=== PATIENT | male | born 1990 | race Caucasian/White ===

== ENCOUNTER 2022-11-17 15:48 | Emergency (ER) | payer OTHER, SELFPAY ==
--- NOTE | ~2022-11-17 | XR_ITS ---
XR chest 2V 11/17/2022 16:05 Indication: Chest pain. Procedure: 2 view chest Comparison: No prior studies for comparison. Findings: Heart size normal. There is a large right pneumothorax with mediastinal shift to the left. No significant effusion. No acute osseous abnormality. Impression: 1: Large right pneumothorax with mediastinal shift to the left. Reviewed, dictated and finalized at location B. Impression: 1: Large right pneumothorax with mediastinal shift to the left.
[2022-11-17 15:48] VITALS: BP 138/77; PULSE 106; RESP 28; TEMP 36.5; O2SAT 97
[2022-11-17 16:11] VITALS: PULSE 102; RESP 22; O2SAT 94
--- NOTE | 2022-11-17 16:14 | ED.CHESTPAIN ---
HPI - Chest Pain General Chief Complaint: Chest Pain Stated Complaint: Shortness of Breath/Chest Pain Time Seen by Provider: 11/17/22 16:01 Source: patient, RN notes reviewed and old records reviewed Mode of arrival: ambulatory Limitations: no limitations History of Present Illness HPI narrative: 32 [facility] complaints of shortness of breath and upper chest pain. He reports that this morning around 1000 he was bending over bath tub washing his hair leaning on his chest and he felt sudden deep pain in his upper chest.Patient reports that he took Tylenol and Ibuprofen without anypain decrease. Since about 1430 he has been experiencing shortness of breath especially if he tries to take deep breath and then he tried taking shallow breaths and he became more short of breath. Patient reports that he also tried using his inhaler with no relief. MD complaint: chest pain and other (dyspnea) Onset (ago): hour(s) (6) Pain location: other (upper chest) Pain scale (0-10): 8 Associated symptoms: dyspnea Treatment prior to arrival: other (Tylenol Ibuprofen and used inhaler) Related Data Home Medications Medication Instructions Recorded Confirmed albuterol sulfate 90 mcg/actuation 90 mcg inhalation DIRECTED 11/17/22 11/17/22 aerosol inhaler budesonide-formoterol HFA 160 160 inh inhalation DIRECTED 11/17/22 11/17/22 mcg-4.5 mcg/actuation aerosol inhaler (Symbicort) dextroamphetamine-amphetamine ER 30 mg PO DIRECTED 11/17/22 11/17/22 30 mg 24hr capsule,extend release Allergies Allergy/AdvReac Type Severity Reaction Status Date / Time No Known Allergies Allergy Verified 11/17/22 15:58 Review of Systems Review of Systems: CONSTITUTIONAL: Denies fever, chills, or sweats. EYES: Denies visual changes, redness, or discharge. ENT: Denies rhinorrhea, congestion, sore throat, or otalgia. CARDIOVASCULAR:Reports chest pain, no palpitations, or edema. RESPIRATORY: Reports dyspnea. GASTROINTESTINAL: Denies abdominal pain, nausea, vomiting, or diarrhea. GENITOURINARY: Denies dysuria or hematuria. SKIN: Denies rash or itching. MUSCULOSKELETAL: Denies back pain, joint pain, or myalgia. NEUROLOGIC: Denies headache, numbness, or weakness. PSYCHIATRIC:Reports history of anxiety or depression. All systems reviewed & are unremarkable except as noted in HPI and below PMFSH Past Medical History Medical History (Updated 11/18/22 @ 12:14 by Anastasia Pascal NP) ADHD (attention deficit hyperactivity disorder) Anxiety Asthma Social History Social History (Updated 11/18/22 @ 12:14 by Anastasia Pascal NP) Smoking status: Never smoker Alcohol intake: unknown Substance use type: does not use Living arrangements: with family Gender identity (if verbalized by the patient): Male Comments At time of signature, agree with nursing past medical, surgical, social and family history. There is no relevant family history pertinent to the presenting complaint Exam Narrative: GENERAL: Well-appearing, well-nourished, and in acute distress.restless with dyspnea HEAD: Normocephalic, atraumatic. EYES: PERRLA and EOMI. ENT: Nares clear, no rhinorrhea or epistaxis. Mucous membranes moist.TM's normal throat pink with no swelling NECK: Supple.no lymphadenopathy CHEST: Diminished breath sound right on auscultation. some respiratory distress.positive for tachypnea and chest pain HEART: Regular rate and rhythm. No murmur heard. Normal peripheral pulses. ABDOMEN: Soft, nontender, nondistended, normal active bowel sounds. EXTREMITIES: Normal range of motion. No edema. SKIN: Warm, dry, no rash. NEURO: No focal deficits. Alert and oriented x3 Course Course Emergency Course: Patient is aware of diagnosis, understands and agrees to treatment plan.? Anticipatory guidance given.? Patient agrees to and is aware of reason for transfer of care to the emergency department. Portions of this record may ralph
[2022-11-17 16:37] VITALS: PULSE 100; RESP 22; O2SAT 94
== END 2022-11-17 16:37 | disposition short-term general hospital (02) ==
PROVIDERS: Emergency Provider Registered Nurse
DX: J93.9 Pneumothorax, unspecified (principal); F90.9 Attention-deficit hyperactivity disorder, unspecified type; J45.909 Unspecified asthma, uncomplicated
CPT/HCPCS: 71046; 99215; G0463

== ENCOUNTER 2024-10-05 11:54 | Emergency (ER) | payer OTHER, BC, SELFPAY ==
--- NOTE | ~2024-10-05 | XR_ITS ---
3 VIEWS THORACIC SPINE Ordering provider: Anastasia Pascal NP History: . pain to thoracic spine . Comparison: None. FINDINGS: VERTEBRAL BODIES: Normal height and alignment. No visible fracture or subluxation. DISK SPACES: Normal. SOFT TISSUES: Normal. IMPRESSION: No acute osseous abnormality of the thoracic spine. Reviewed, dictated and finalized at location A.
--- OUTSIDE RECORDS SUMMARY | 2024-10-05 11:56 | XMS_ITS | Clinical Summary ---
Author Organization [facility] Address [address] [place] [address] Phone Care Team Providers Care Corporate Event Planner Name Role Phone Michel James [facility] Primary Care Provider Allergies No known active allergies Medications valACYclovir (VALTREX) 500 MG Tablet Take 1 Tab by mouth daily. 30 Tab 5 01/07/20 20 Active albuterol 108 (90 Base) MCG/ACT Aerosol SolutionIndicatio ns:Mild intermittent asthma without complication take 2 Puffs by inhalation every 4 hours as needed for Wheezing or Cough. 18 g 2 08/04/19 25 Active budesonide-formot leesa fumarate (Symbicort) 160-4.5 MCG/ACT AerosolIndication s:Mild intermittent asthma without complication take 2 Puffs by inhalation 2 times daily. 30.6 g 08/04/19 25 Active amphetamine-dextr oamphetamine (Adderall XR) 30 MG CAPSULE SR 24 HRIndications:Att ention deficit hyperactivity disorder (ADHD), combined type Take one tablet daily in AM. Take with 20mg dose to make 50mg daily. 30 Capsule 09/04/19 25 Active amphetamine-dextr oamphetamine (Adderall XR) 20 MG CAPSULE SR 24 HRIndications:Att ention deficit hyperactivity disorder (ADHD), combined type Take 1 Capsule by mouth every morning. Take with 30mg dose to get 50mg daily. 30 Capsule 09/19/19 25 Active amphetamine-dextr oamphetamine (Adderall XR) 20 MG CAPSULE SR 24 HRIndications:Att ention deficit hyperactivity disorder (ADHD), combined type Take 1 Capsule by mouth every morning. Take with 30mg dose to get 50mg daily. 30 Capsule 08/19/19 25 025 Discontin ued(Reord er) Active Problems Problem Noted Date Diagnosed Date Seasonal allergic rhinitis 12/31/2018 Eczema 12/31/2018 Major depressive disorder, r ecurrent episode, moderate with anxious distress 01/03/2018 ADHD (attention deficit hyperactivity disorder) 01/01/2018 Moderate persistent asthma without complication 08/15/2017 Encounters Date Type Department Care Team Description 09/17/2024 MyChart RX Renewal [facility] [place] [phone] Michel James PAC Medication Renewal Reviewed 09/03/2024 Refill [facility] [place] [address] Michel James PAC Medication Refill 08/29/2024 3:00 PM TRAIN STARTER Outpatient Clinic Visit [facility] [address] [place] [phone] Michel James, Ana M Woodard, [facility] ADHD (attention deficit hyperactivity disorder) (Primary Dx); Major depressive disorder, recurrent episode, moderate with anxious distress (HCC); Anxiety Discharge Disposition: Discharged to home or Selfcare 08/29/2024 Travel 08/21/2024 Refill [facility] [place] [address] Michel James PAC Medication Refill 08/18/2024 MyChart RX Renewal [facility] [address] [place] [phone] Michel James PAC Medication Renewal Declined 08/07/2024 Results Follow-Up [facility] [place] [address] Michel James PAC 08/04/2024 9:40 AM TRAIN STARTER [facility] [address] [place] [address] [place] [facility] Mild intermittent asthma without complication; Preventative health care (Adult); Anxiety Discharge Disposition: Discharged to home or Selfcare 08/04/2024 7:45 AM TRAIN STARTER [facility] [address] [place] [address] Michel James PAC Preventative health care (Adult) (Primary Dx); Attention deficit hyperactivity disorder (ADHD), combined type; Mild intermittent asthma without complication; Major depressive disorder, recurrent episode, moderate with anxious distress (HCC); Anxiety Discharge Disposition: Discharged to home or Selfcare 08/04/2024 Travel 08/01/2024 [facility] [address] [place] [address] Michel James PAC Medication Refill 08/01/2024 Telephone [facility] [address] [place] [phone] Michel James PAC Medication Management 07/12/2024 Refill [facility] [address] [place] [phone] Michel James PAC Medication Refill from Last 3 Months Immunizations Immunization Administration Dates Next Due DTAP VACCINE 10/22/1996 DTP Vaccine 02/28/1993, 2,01/21/1992,1991 Hepatitis B Vaccine,unspecif ied Formulation 10/22/1996,09/03/1996 Hib (HbOC) 02/28/1993, 2,01/21/1992,1991 MMR Vaccine 09/03/1996,02/28/1993 OPV 09/03/1996, 3,05/26/1992,1991,1991 Family History Relation Name Status Comments Father Alive Mother Alive Social History Tobacco Use Types Packs/Day Years Used Date Smoking Tobacco: Former Smokeless Tobacco: Never Tobacco Cessation:Counseling Given: Not Answered Alcohol Use Standard Drinks/Week Comments Yes 0 (1 standard drink = 0.6 oz pur e alcohol) rare [facility] Utilities Answer Date Recorded In the past 12 months has th e electric, gas, oil, or water company threatened to shut off services in your home? Yes 08/04/2024 Social Connection and Isolat ion Panel [NHANES] Answer Date Recorded In a typical week, how many times do you talk on the phone with family, friends, or neighbors? Once a week 08/04/2024 How often do you get togethe r with friends or relatives? Once a week 08/04/2024 How often do you attend chur ch or mandaen services? More than 4 times per year 08/04/2024 Do you belong to any clubs o r organizations such as quaker groups, unions, fraternal or athletic groups, or school groups? Yes 08/04/2024 How often do you attend meet ings of the clubs or organizations you belong to? More than 4 times per year 08/04/2024 Are you , , di vorced, , never , or living with a partner? Patient declined 08/04/2024 AUDIT-C Answer Date Recorded Q1: How often do you have a drink containing alc ohol? Monthly or less 08/04/2024 Q2: How many drinks containi ng alcohol do you have on a typical day when you are drinking? 3 or 4 08/04/2024 Q3: How often do you have si x or more drinks on one occasion? Never 08/04/2024 Overall Financial Resource Strain (CARDIA) Answe r Date Recorded How hard is it for you to pa y for the very basics like food, housing, medical care, and heating? Somewhat hard 08/04/2024 PHQ-2 Answer Date Recorded Total Score - Questions 1-9 0 08/2024 [facility] Occupat ional Health - Occupational Stress Questionnaire Answer Date Recorded Do you feel stress - tense, restless, nervous, or anxious, or unable to sleep at night because your mind is troubled all the time - these days? Very much 08/04/2024 Exercise Vital Sign Answer Date Recorde d On average, how many days pe r week do you engage in moderate to strenuous exercise (like a brisk walk)? 3 days 08/04/2024 On average, how many minutes do you engage in exercise at this level? 50 min 08/04/2024 Hunger Vital Sign Answer Date Recorded Within the past 12 months, y ou worried that your food would run out before you got the money to buy more. Sometimes true Within the past 12 months, t he food you bought just didn't last and you didn't have money to get more. Sometimes true 08/2024 PRAPARE - Transportation Answer Date Re corded In the past 12 months, has l ack of transportation kept you from medical appointments or from getting medications? No 08/2024 In the past 12 months, has l ack of transportation kept you from meetings, work, or from getting things needed for daily living? No 08/04/2024 Housing Stability Vital Sign Answer Stephen e Recorded In the last 12 months, was t here a time when you were not able to pay the mortgage or rent on time? No 08/04/2024 In the past 12 months, how m any times have you moved where you were living? 1 08/04/2024 At any time in the past 12 m [facility], were you homeless or living in a residential (including now)? No 08/04/2024 Sexually Active Control Partners Comments Yes None Female Sex and Gender Information Value Date Recorded Sex Assigned at Not on file Legal Sex Male 10:51 AM TRAIN STARTER Gender Identity Not on file Sexual Orientation Not on file Last Filed Vital Signs Vital Sign Reading Time Taken Comments Blood Pressure 102/70 08/04/2024 7:52 AM TRAIN STARTER Pulse 66 08/04/2024 7:52 AM TRAIN STARTER Temperature 37.7 C (99.8 F) 08/04/2024 7:52 AM TRAIN STARTER Respiratory Rate 20 08/04/2024 7:52 AM TRAIN STARTER Oxygen Saturation 99% 08/04/2024 7:52 AM TRAIN STARTER Inhaled Oxygen Concentration - - Weight 85.7 kg (189 lb) 08/04/2024 7:52 AM TRAIN STARTER Height 182.9 cm (6') 07/13/2023 3:46 PM TRAIN STARTER Body Mass Index 25.63 07/13/2023 3:46 PM TRAIN STARTER Plan of Treatment Upcoming Encounters Date Type Department Care Team (Late st Contact Info) Description 02/02/2025 9:00 AM CDT Lab [facility] [address] [place] [phone] [facility] 02/09/2025 9:00 AM CDT Office Visit [facility] [address] [place] [address] Michel James, PAC [address] [place] [phone] Health Maintenance Due Date Last Done Comments Hepatitis C Virus (HCV) Screening 1991 Hepatitis B Immunization (3 of 3 - 3-dose series) 12/24/1996 10/22/1996, 09/03/1996 DTaP/Tdap/Td Immunization (6 - Tdap) 09/01/2002 10/22/1996, 02/28/1993, 05/26/1992, Additional history exists Pneumococcal Immunization Combined (1 of 2 - PCV) 09/01/2010 Influenza Immunization (#1) 2024 SARS-COV-2 Immunization ( - 2023- season) 2024 Respiratory Syncytial Virus (RSV) Immunization (Adult) (1 - 1-dose 75+ series) 09/01/2066 Meningococcal Immunization (ACWY) Aged Out No longer eligible based on patient's age to complete this topic Rotavirus Immunization Aged Out No lo nger eligible based on patient's age to complete this topic Goals Goal Patient Goal Type Associated Problems Recent Progress Patient-Stated? Author figure out where I am going and how to do it Behavioral Health Improving( 11:35 AM CDT) Lianne Buckner, EXHIBITION ORGANISER Note: Learn about the things are keeping from my achieving my potential and eliminate them so I can move forward. Address ADHD symptoms, and depression symptoms through monthly counseling. 45 minute sessions for 6 months. Learn 5 healthy coping skills to manage moods and stress Learn 3 strategies to ease ADHD and be able to apply them to my future. Take any medication as directed to reduce symptoms. ADHD coping skills. Behavioral Health On track(2020 11:35 AM CDT) No Lianne Henderson LCSW Note: Goal Reviewed with: patient Readiness to change: Ready to change Department associated with goal: [facility] Steps to achieve goal: will identify at least two coping skills/activities/habits that have helped to manage anxiety in the past. will identify at least three new coping skills/activities/habits that may help to prevent and/or cope with anxiety. 3. will identify a plan to implement coping skills and follow this plan for two weeks and evaluate the impact on anxiety. 4. Attend counseling twice per month for 6 months. 30-45 minute sessions. Depression Depression Improving( 11:35 AM CDT) No Lianne Henderson LCSW Note: to have reduction of anxiety and depression symptoms. Goal Reviewed with: patient today Readiness to change: Ready to change Department associated with goal: [facility] Steps to achieve goal: to attend, at least twice monthly, counseling sessions for 6 month. Sessions will be 45 minutes long. to identify, verbalize and process at least three contributing factors/triggers to anxiety and depression. to identify and verbalize at least three actions/skills to prevent and/or cope with anxiety and depression. to put into action, at least one time weekly, for one month, an action/skill to prevent and or cope with anxiety and depression. Procedures Procedure Name Priority Date/Time Associated Diagnosis Comments THYROID SCREEN WITH REFLEX Routine 08/04/2024 8:27 AM TRAIN STARTER Anxiety Preventative health care (Adult) CBC WITH AUTO DIFFERENTIAL Today 08/04/2024 8:27 AM TRAIN STARTER Mild intermittent asthma without complication Preventative health care (Adult) THYROID SCREEN WITH REFLEX Routine 08/04/2024 8:27 AM TRAIN STARTER Anxiety Preventative health care (Adult) LIPID PANEL Today 08/04/2024 8:27 AM TRAIN STARTER Preventative health care (Adult) CMP (COMPREHENSIVE METABOLIC PANEL) Routine 08/04/2024 8:27 AM TRAIN STARTER Preventative health care (Adult) COMPLETE BLOOD COUNT (CBC) WITH DIFF Today 08/04/2024 8:27 AM TRAIN STARTER Mild intermittent asthma without complication Preventative health care (Adult) from Last 3 Months Results * THYROID SCREEN WITH REFLEX (08/04/2024 8:27 AM TRAIN STARTER) Pathologist [facility] [place] TSH 1.489 0.300 - 5.000 mIU/L 08/04/2024 1:06 PM TRAIN STARTER [facility] Blood Venipuncture / Unknown 08/04/2024 8:27 AM TRAIN STARTER 08/04/2024 8:27 AM TRAIN STARTER us Michel James PAC CHEMISTRY ORDERABLES Final R esult [facility] [place] [address] * (ABNORMAL) CBC WITH AUTO DIFFERENTIAL (08/04/2024 8:27 AM TRAIN STARTER) Pathologist [facility] [place] WBC 6.81 4.00 - 12.00 10(3)/mcL 08/04/2024 12:39 PM TRAIN STARTER [facility] RBC 4.20(L) 4.40 - 5.80 10(6)/mcL 08/04/2024 12:39 PM TRAIN STARTER [facility] HEMOGLOBIN (HGB) 13.5 13.0 - 16.5 g/dL 08/04/2024 12:39 PM TRAIN STARTER [facility] HEMATOCRIT (HCT) 39.9 38.0 - 50.0 % 08/04/2024 12:39 PM TRAIN STARTER [facility] MCV 95.0 82.0 - 96.0 fL 08/04/2024 12:39 PM TRAIN STARTER [facility] MCH 32.1(H) 26.0 - 32.0 pg 08/04/2024 12:39 PM [facility] MCHC 33.8 31.0 - 36.0 g/dL 08/04/2024 12:39 PM [facility] PLATELET COUNT 389 140 - 440 10(3)/[facility] 08/04/2024 12:39 PM [facility] RDW 12.4 11.8 - 15.5 % 08/04/2024 12:39 PM [facility] MPV 10.0 8.0 - 12.6 fL 08/04/2024 12:39 PM [facility] NEUTROPHILS 43.2 40.0 - 68.0 % 08/04/2024 12:39 PM [facility] LYMPHOCYTES 43.9 19.0 - 49.0 % 08/04/2024 12:39 PM [facility] MONOCYTES 7.6 3.0 - 13.0 % 08/04/2024 12:39 PM [facility] EOSINOPHILS 3.5 0.0 - 8.0 % 08/04/2024 12:39 PM [facility] BASOPHILS 1.8(H) 0.0 - 1.0 % 08/04/2024 12:39 PM [facility] ABSOLUTE NEUTROPHILS 2.94 1.40 - 5.30 10(3)/[facility] 08/04/2024 12:39 PM [facility] ABSOLUTE LYMPHOCYTES 2.99 0.90 - 3.30 10(3)/[facility] 08/04/2024 12:39 PM [facility] ABSOLUTE MONOCYTES 0.52 0.10 - 0.90 10(3)/[facility] 08/04/2024 12:39 PM [facility] ABSOLUTE EOSINOPHIL 0.24 0.00 - 0.50 10(3)/[facility] 08/04/2024 12:39 PM [facility] ABSOLUTE BASOPHILS 0.12(H) 0.00 - 0.10 10(3)/[facility] 08/04/2024 12:39 PM [facility] NRBC PER 100 WBC 0 08/04/19 12:39 PM TRAIN STARTER [facility] Blood Venipuncture / Unknown 08/04/2024 8:27 AM TRAIN STARTER 08/04/2024 8:27 AM TRAIN STARTER us Michel James PAC HEMATOLOGY ORDERABLES Final Result [facility] [address] [place] [address] * LIPID PANEL (08/04/2024 8:27 AM TRAIN STARTER) CHOLESTEROL 145 <200 mg/dL 08/04/2024 1:01 PM TRAIN STARTER [facility] TRIGLYCERIDES 64 <150 mg/dL 08/04/2024 1:01 PM TRAIN STARTER [facility] HDL CHOLESTEROL 44 >40 mg/dL 1:01 PM TRAIN STARTER [facility] LDL 88 <130 mg/dL 08/04/2024 1:01 PM TRAIN STARTER [facility] VLDL 13 10 - 50 mg/dL 08/04/2024 1:01 PM [facility] CHOL/HDL RATIO 3.3 0.0 - 4.4 08/04/2024 1:01 PM TRAIN STARTER [facility] NON-HDL CHOLESTEROL 101 <130 mg/dL 08/04/2024 1:01 PM TRAIN STARTER [facility] IS THE PATIENT REQUIRED TO BE FASTING? Yes 08/04/2024 1:01 PM [facility] HAS THE PATIENT BEEN FASTING? Yes 08/04/2024 1:01 PM TRAIN STARTER [facility] Blood Venipuncture / Unknown 08/04/2024 8:27 AM TRAIN STARTER 08/04/2024 8:27 AM TRAIN STARTER us Michel James PAC CHEMISTRY ORDERABLES Final R esult [facility] [address] [place] [address] * (ABNORMAL) CMP (COMPREHENSIVE METABOLIC PANEL) (08/04/2024 8:27 AM TRAIN STARTER) SODIUM 140 136 - 145 mmol/L 08/04/2024 1:01 PM [facility] POTASSIUM 4.6 3.5 - 5.1 mmol/L 08/04/2024 1:01 PM [facility] CHLORIDE 110(H) 98 - 107 mmol/L 08/04/2024 1:01 PM [facility] CO2, VENOUS 25 22 - 30 mmol/L 08/04/2024 1:01 PM [facility] ANION GAP 9.6 <18.0 mmol/L 08/04/2024 1:01 PM [facility] GLUCOSE 100(H) 70 - 99 mg/dL 08/04/2024 1:01 PM [facility] BUN 11 9 - 21 mg/dL 08/04/2024 1:01 PM [facility] CREATININE, BLOOD 0.87 0.70 - 1.30 mg/dL 08/04/2024 1:01 PM [facility] BUN/CREATININE RATIO 13 12 - 20 ratio 08/04/2024 1:01 PM [facility] TOTAL PROTEIN 8.1(H) 6.0 - 8.0 g/dL 08/04/2024 1:01 PM [facility] ALBUMIN 4.3 3.5 - 5.0 g/dL 08/04/2024 1:01 PM [facility] A/G RATIO 1.1 1.0 - 2.2 08/04/2024 1:01 PM [facility] CALCIUM 9.3 8.7 - 10.5 mg/dL 08/04/2024 1:01 PM [facility] T BILI 0.2 0.2 - 1.2 mg/dL 08/04/2024 1:01 PM [facility] SGOT (AST) 29 6 - 42 U/L 08/04/2024 1:01 PM TRAIN STARTER [facility] SGPT (ALT) 28 6 - 55 U/L 08/04/2024 1:01 PM [facility] ALKALINE PHOSPHATASE 69 40 - 150 U/L 08/04/2024 1:01 PM [facility] IS THE PATIENT REQUIRED TO BE FASTING? Yes 08/04/2024 1:01 PM [facility] HAS THE PATIENT BEEN FASTING? Yes 08/04/2024 1:01 PM TRAIN STARTER [facility] GFR, ESTIMATED >60 >=60 08/04/2024 1:01 PM [facility] Comment: Creatinine Clearance is the preferred criteria for selecting drug dose adjustments in renally impaired patients. The GFR is provided as additional pertinent clinical information. GFR is reported in mL/min/1.73 sq m. Calculation based on the Chronic Kidney Disease Epidemiology Collaboration (CKD- EPI) equation refit without adjustment for race. GFR, EST. >60 >=60 025 1:01 PM TRAIN STARTER [facility] GFR, EST. NONAFRICAN >60 >=60 08/04/2024 1:01 PM [facility] Blood Venipuncture / Unknown 08/04/2024 8:27 AM TRAIN STARTER 08/04/2024 8:27 AM TRAIN STARTER us Michel James PAC CHEMISTRY ORDERABLES Final R esult [facility] [address] [place] [address] from Last 3 Months Insurance MEDICAID [place] [id number] Care Teams Corporate Event Planner Relationship Specialty Start Date End Date Michel James, PAC [address] [place] [address] PCP - General Physician Production Trainer 11/02/22
--- OUTSIDE RECORDS SUMMARY | 2024-10-05 11:56 | XMS_ITS | Referral Summary ---
Author Organization [facility] Address [address] [place] [address] Care Team Providers Care Ethernet Network Architect Name Role Phone Jodie Abarca RUBBER DOWN Primary Care Provider [phone] Allergies No known active allergies Medications budesonide-form oteroL (Symbicort) 160-4.5 mcg/actuation inhaler TAKE 2 PUFFS BY INHALATION 2 TIMES DAILY. 3 Active albuterol HFA (PROVENTIL HFA,VENTOLIN HFA,PROAIR HFA) 90 mcg/actuation inhaler Inhale 2 puffs every 4 (four) hours as needed 2 Active dextroamphetami ne-amphetamine XR (ADDERALL XR) 30 mg 24 hr capsule Take 1 capsule (30 mg total) by mouth every morning 3 Active valACYclovir (VALTREX) 500 mg tablet Take 1 tablet (500 mg total) by mouth daily 0 Active ibuprofen (ADVIL,MOTRIN) 600 mg tabletIndicatio ns:Anti-inflamm atory,Fever,Keenan n Take 1 tablet (600 mg total) by mouth every 6 (six) hours as needed for pain Active oxyCODONE-aceta minophen (PERCOCET) 5-325 mg per tabletIndicatio ns:Pain Take 1 tablet by mouth every 4 (four) hours as needed for pain for up to 10 doses 10 tablet 3 Active Active Problems Problem Noted Date Diagnosed Date Spontaneous pneumothorax 11/17/2022 Assessment & Plan (11/20/2022 12:18 PM CDT): On admission complaints of sudden-onset shortness of breath, found to have large R sided spontaneous pneumothorax, confirmed with chest x-ray. Chest tube placed in ER with symptomatic improvement. Repeat CXR also showed considerable improvement on 11/20. General surgery on consult, appreciate their recommendations. On 11/20, chest tube now removed. Has wound down to room air and is tolerating without difficulty. Pain adequately controlled with p.r.n. pain control. Plan: Surgery on consult. Repeat chest x-ray in 4 hours. Pain control adjusted to 1st line Percocet q.4 hours p.r.n. and second-line 1 mg Dilaudid IV q.4 3 hours p.r.n. Continue incentive spirometry Continue Vistaril 25 mg t.i.d. p.r.n. for anxiety Attention deficit hyperactiv ity disorder (ADHD), predominantly inattentive type 11/17/2022 Assessment & Plan (11/20/2022 12:19 PM CDT): Previously taking Adderall 30 mg daily. Patient's medication non formulary while inpatient. Medication presently held at this time. Denies any concerns. Plan: Continue monitor clinically. Mild intermittent asthma without complication Assessment & Plan (11/20/2022 12:19 PM CDT): Previously taking home medications of albuterol and Symbicort p.r.n.. Physical examination without wheezing at this time. Plan: Continue DuoNeb q.4 hours p.r.n.. Immunizations Immunization Administration Dates Next Due DTP 02/28/1993,05/26/1992,01/21/1992 ,1991 DTaP 10/22/1996 Hep B, Unspecified 10/22/1996,09/03/1996 Hib (HbOC) 02/28/1993,05/26/1992,01/21/1992 ,1991 MMR 09/03/1996,02/28/1993 OPV 09/03/1996,02/28/1993,05/26/1992 ,01/21/1992,1991 Social History Tobacco Use Types Packs/Day Years Used Date Smoking Tobacco: Never Passive Smoke Exposure: Past Smokeless Tobacco: Never Tobacco Cessation:Counseling Given: No Social Connection and Isolat ion Panel [NHANES] Answer Date Recorded In a typical week, how many times do you talk on the phone with family, friends, or neighbors? Three times a week 11/20/2022 How often do you get togethe r with friends or relatives? Once a week 11/20/2022 How often do you attend chur ch or holiness services? More than 4 times per year 11/20/2022 Do you belong to any clubs o r organizations such as islam groups, unions, fraternal or athletic groups, or school groups? Yes 11/20/2022 How often do you attend meet ings of the clubs or organizations you belong to? More than 4 times per year 11/20/2022 Are you , , di vorced, , never , or living with a partner? Never 11/20/2022 AUDIT-C Answer Date Recorded Q1: How often do you have a drink containing alcohol? Never 11/17/2022 Q2: How many drinks containi ng alcohol do you have on a typical day when you are drinking? Patient does not drink Q3: How often do you have si x or more drinks on one occasion? Never 11/17/2022 Overall Financial Resource Strain (CARDIA) Answe r Date Recorded How hard is it for you to pa y for the very basics like food, housing, medical care, and heating? Hard 11/20/2022 PHQ-2 Answer Date Recorded PHQ-2 Total Score (If total score is 3 or more points, staff should administer the PHQ-9) 0 11/18/2022 Hunger Vital Sign Answer Date Recorded Within the past 12 months, y ou worried that your food would run out before you got the money to buy more. Sometimes true Within the past 12 months, t he food you bought just didn't last and you didn't have money to get more. Sometimes true PRAPARE - Transportation Answer Date Re corded In the past 12 months, has l ack of transportation kept you from medical appointments or from getting medications? No 10/31 In the past 12 months, has l ack of transportation kept you from meetings, work, or from getting things needed for daily living? No 11/20/2022 Housing Stability Vital Sign Answer Tsephen e Recorded In the last 12 months, was t here a time when you were not able to pay the mortgage or rent on time? No 11/20/2022 In the last 12 months, how many places have you lived? 1 11/20/2022 In the last 12 months, was t here a time when you did not have a steady place to sleep or slept in a long term (including now)? No 11/20/2022 Personal Safety Answer Date Recorded Getting School Help Needed Not on file 11/22 Education Answer Date Recorded What is the highest level of school you have completed or the highest degree you have received? 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 Gender Identity Not on file Sexual Orientation Not on file Last Filed Vital Signs Vital Sign Reading Time Taken Comments Blood Pressure 115/71 11/21/2022 7:24 AM CDT Pulse 71 11/21/2022 7:24 AM CDT Temperature 36.7 C (98.1 F) 11/21/2022 7:24 AM CDT Respiratory Rate 18 11/21/2022 7:24 AM CDT Oxygen Saturation 98% 11/21/2022 7:24 AM CDT Inhaled Oxygen Concentration - - Weight 81.5 kg (179 lb 10.8 oz) 11/17/2022 9:23 PM CDT Height 182.9 cm (6') 11/17/2022 9:23 PM CDT Body Mass Index 24.37 11/17/2022 9:23 PM CDT Plan of Treatment Not on file Insurance [facility] [id number] [employer] [place] Advance Directives For more information, please contact: [phone] * Full Code (Latest Code Status on File) Date Activated Date Inactivated Comments 11/17/2022 8:10 PM 11/21/2022 4:07 PM Care Teams Ethernet Network Architect Relationship Specialty Start Date End Date Jodie Abarca NP [address] [place] [address] PCP - General Nurse Practitioner 11/17/22
--- OUTSIDE RECORDS SUMMARY | 2024-10-05 11:56 | XMS_ITS | Encounter Summary ---
Author Organization [facility] Address [address] [place] [address] Phone Care Team Providers Care General Assembler Installer Name Role Phone Michel James Primary Care Provider Reason for Visit * Reason Comments Medication Refill Encounter Details Date Type Department Care Team (Late st Contact Info) Description 11/22/2023 [facility] [place] [address] [place] [address] Michel James PAC [address] [place] [address] Medication Refill Social History Tobacco Use Types Packs/Day Years Used Date Smoking Tobacco: Former Smokeless Tobacco: Never Alcohol Use Standard Drinks/Week Comments Not Currently 0 (1 standard drink = 0.6 oz pur e alcohol) PHQ-2 Answer Date Recorded Total Score - Questions 1-9 0 09/30 Sexually Active Control Partners Comments Yes None Female Sex and Gender Information Value Date Recorded Sex Assigned at Not on file 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 * Telephone Encounter - Suleman Jarrell RN - 11/22/2023 8:08 AM CDT Medication failed the protocol, provider to review and approve the medication order if appropriate. Requested Prescriptions Pending Prescriptions Disp Refills naproxen (NAPROSYN) 500 MG Tablet [Pharmacy Med Name: NAPROXEN 500 MG TABLET] 180 Tablet 1 Sig: TAKE 1 TABLET BY MOUTH TWICE A DAY WITH MEALS NSAIDs Protocol Failed - 11/22/2023 12:06 AM Failed - No matching NSAID med order in past 45 days Matching medication order placed on 10/26/2023 3:02 PM Order [id number]: naproxen (NAPROSYN) 500 MG Tablet (For orders placed between 10/08/2023 8:08 AM and 11/22/2023 8:08 AM) Passed - Normal serum creatinine in past 12 months CREATININE, BLOOD Date Value Ref Range Status 07/27/2023 0.96 0.70 - 1.30 mg/dL Final Passed - Visit with relevant provider in past 12 months or upcoming 90 days Recent Visits Date Type Provider Dept 10/12/23 Office Visit Michel James PAC [facility] 07/13/23 Office Visit Michel James PAC [facility] 11/24/22 Office Visit Michel James, DIEUDONNE [facility] Showing recent visits within past 365 days and meeting all other requirements Future Appointments No visits were found meeting these conditions. Showing future appointments within next 90 days and meeting all other requirements Passed - AST less than 55 or ALT less than 90 in past 12 months SGOT (AST) Date Value Ref Range Status 07/27/2023 27 5 - 34 U/L Final SGPT (ALT) Date Value Ref Range Status 07/27/2023 16 0 - 55 U/L Final Passed - HGB greater than 10 or HCT greater than 30 in past 12 months HEMOGLOBIN (HGB) Date Value Ref Range Status 07/27/2023 12.9 (L) 13.0 - 16.5 g/dL Final HEMATOCRIT (HCT) Date Value Ref Range Status 07/27/2023 38.3 38.0 - 50.0 % Final documented in this encounter Plan of Treatment Upcoming Encounters Date Type Department Care Team (Late st Contact Info) Description 02/02/2025 9:00 AM CDT Lab [facility] [address] [place] [address] [facility] 02/09/2025 9:00 AM CDT Office Visit [facility] [address] [place] [address] Michel James PAC [address] [place] [address] documented as of this encounter Goals Goal Patient Goal Type Associated Problems Recent Progress Patient-Stated? Author figure out where I am going and how to do it Behavioral Health Improving( 11:35 AM CDT) No Lianne Henderson LCSW Note: Learn about the things are keeping [...] Behavioral Health On track(2020 11:35 AM CDT) Lianne Buckner LCSW Note: Goal Reviewed with: patient Readiness to change: Ready to change Department associated with goal: [facility] Steps to achieve goal: [...] Depression Improving( 11:35 AM CDT) No Lianne Henderson, PROCUREMENT BUYER Note: to have reduction of anxiety and depression symptoms. Goal Reviewed with: patient today Readiness to change: Ready to change Department associated with goal: [facility] Steps to achieve goal: [...] and or cope with anxiety and depression. documented as of this encounter Visit Diagnoses Diagnosis Acute bilateral low back pain, unspecified whether sciatica present documented in this encounter Additional Health Concerns Assessment Noted Time PHQ-9 Depression Total Score: 0 10/12/19 24 3:11 PM CDT documented as of this encounter Care Teams General Assembler Installer Relationship Specialty Start Date End Date Michel James, DIEUDONNE [address] [place] [address] PCP - General Physician Paint Laboratory Technician 11/02/22 documented as of this encounter
--- OUTSIDE RECORDS SUMMARY | 2024-10-05 11:56 | XMS_ITS | Clinical Summary ---
Author Organization [facility] Address [address] [place] [address] Care Team Providers Care Welder Setter Resistance Machine Name Role Phone Jodie Abarca TECH BRAZER TESTER Primary Care Provider [phone] Allergies No known active allergies Medications budesonide-form [...] 02/28/1993,05/26/1992,01/21/1992 ,1991 MMR 09/03/1996,02/28/1993 OPV 09/03/1996,02/28/1993,05/26/1992 ,01/21/1992,1991 Medical History Medical History Date Comments Asthma Substance abuse (HCC) Social History Tobacco Use Types Packs/Day Years [...] often do you attend chur ch or congregation services? More than 4 times per year 11/20/2022 Do you belong to any clubs o r organizations such as restorationism groups, unions, fraternal or athletic groups, or [...] No 11/20/2022 Housing Stability Vital Sign Answer Stephen e [...] place to sleep or slept in a long-term (including now)? No 11/20/2022 Personal Safety Answer Date Recorded Getting School Help Needed Not on file 11/22 Education Answer Date Recorded What is the highest level of school you have completed or the highest degree you have received? 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 Gender Identity Not on file Sexual Orientation Not on file Obstetrics History Last Filed Vital Signs Vital Sign Reading [...] 11/17/2022 9:23 PM CDT Plan of Treatment Health Maintenance Due Date Last Done Comments Hepatitis C Screening 1991 DTaP/Tdap/Td Vaccine (6 - Tdap) 09/01/2002 10/22/1996, 02/28/1993, 05/26/1992, Additional history exists Varicella Vaccines (1 of 2 - 13+ 2-dose series) 09/01/2004 Regular Well Visit/Exam 18-64 09/01/2009 Pneumococcal vaccine <65 (1 of 2 - PCV) 09/01/2010 Depression Screening 11/18/2023 11/17/2022 Influenza Vaccine (Season Ended) 2025 Hepatitis B Screening Completed 10/22/1996, 997 HPV Vaccines Aged Out No longer eligi ble based on patient's age to complete this topic Insurance [employer] [place] Sub[place] Plan / Payer (Ef fective 2020-Present) Name:Jeremy Espinal Relation to Subscriber:Self Name:Jeremy Espinal Payer ID:[id number] (NAIC) Group ID:Not on file Type:MEDICAID RISK OTHER Address: [facility] [id number] [place] [id number] [employer] Sub[place] Plan / Payer ( fective 2020-Present) Name:Jeremy Espinal Relation to Subscriber:Self Name:Jeremy Espinal Payer ID:[id number] (NAIC) Group ID:Not on file Type:MEDICAID RISK OTHER Address: [facility] [id number] [place] [id number] Advance Directives For more information, please contact: [phone] * Full Code (Latest Code Status on File) Date Activated Date Inactivated Comments 11/17/2022 8:10 PM 11/21/2022 4:07 PM Care Teams Welder Setter Resistance Machine Relationship Specialty Start Date End Date Jodei Abarca NP [address] [place] [address] PCP - General Nurse Practitioner 11/17/22
[2024-10-05 12:00] VITALS: BP 121/85; PULSE 60; RESP 16; TEMP 36.8; O2SAT 100
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
== END 2024-10-05 13:13 | disposition home or self-care (01) ==
PROVIDERS: Emergency Provider Registered Nurse
DX: M54.6 Pain in thoracic spine (principal); J45.909 Unspecified asthma, uncomplicated; F90.9 Attention-deficit hyperactivity disorder, unspecified type
CPT/HCPCS: 72072; 99213; G0463